=== PATIENT | female | born 1955 | race Asian ===

== ENCOUNTER 2019-10-01 19:50 | Emergency (ER) | payer MEDICARE, OTHER ==
[~2019-10-01] VITALS: Ht 160 cm; Wt 59.0 kg
[2019-10-01 20:00] VITALS: BP 161/74
[2019-10-01] MEDS: Acetaminophen 500mg (ES) tab ORAL ONE ×2 (20:08→20:12)
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
[2019-10-01] MEDS ORDERED: IBUPROFEN600 M1 ORAL (21:03)
[2019-10-01] MEDS ORDERED: LIDODERM700 M1 TOPIC (21:04)
[2019-10-01] MEDS ORDERED: ROBAXIN-750750 MG PO (21:04)
[2019-10-01 21:29] VITALS: BP 149/76
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
== END 2019-10-01 21:30 | disposition home or self-care (01) ==
LOC: EDBD 19:50 → EMR 20:05
DX: S16.1XXA Strain of muscle, fascia and tendon at neck level, initial encounter (principal); S39.012A Strain of muscle, fascia and tendon of lower back, initial encounter; S80.02XA Contusion of left knee, initial encounter; V49.40XA Driver injured in collision with unspecified motor vehicles in traffic accident, initial encounter; Y92.410 Unspecified street and highway as the place of occurrence of the external cause
CPT/HCPCS: 70450; 72020; 72125; 99284